=== PATIENT | male | born 1955 | race Caucasian/White ===

== ENCOUNTER 2016-09-15 07:09 | Inpatient (IN) ==
[2016-09-15] MEDS ORDERED: ZOFRAN ONE (07:24)
[2016-09-15] MEDS ORDERED: NS 1,000 ML IV ONE (07:24)
[2016-09-15] MEDS ORDERED: NS 1,000 ML ONE (07:24)
[2016-09-15] MEDS ORDERED: ZOFRAN IV ONE (07:24)
--- NOTE | 2016-09-15 07:33 | PROVIDER DOCUMENTATION ---
HPI-General Adult - General Stated Complaint: ALLERGIC REACTION Time Seen by Provider: 09/15/16 07:14 Source: patient, family Allergies/Adverse Reactions: Patient Allergies Allergy/AdvReac Type Severity Reaction Status Date / Time codeine Allergy Mild ITCHING Verified 09/15/16 07:27 Home Medications: Home Medication List Medication Instructions Recorded Confirmed Last Taken Type Lisinopril 20 mg PO DAILY 06/06/13 09/15/16 06/05/13 History Amoxicillin [Amoxicillin] 500 mg PO DAILY 09/15/16 09/15/16 09/14/16 23:00 History Hydrocodone/Acetaminophen [[place] 1 each PO Q4-6H PRN PRN 09/15/16 09/15/1609/15 01:00 History 10-325 Tablet] - History of Present Illness -Gen Adult Nature of Presenting Problems: Reports started [place]ox[place] and [place] for his dental procedure, which has no been done yet. Allergic reaction to [place] after taking 2 doses so far. Reports severe N/V and feeling sick in his stomach since 3AM last night. Pt feels sick/ weak and shaking when seen at ER. Denies CP/F/LOC. Reports h/o allergic to codeine. Saw PCP recently for yearly physical and was told that he is very healthy and prachi doing what he has been doing. Pt took Amoxil before and has no allergic reaction to it. Location of Pain/Injury: reports: abdomen Pain Radiation: reports: no radiation Quality of Pain: reports: other (Sick/nauseous feeling) Severity: reports: moderate, severe Onset/Duration: reports: last night Timing: reports: still present Context/Activities at Onset: reports: other (See HPI) Modifying Factors: improves with: nothing Associated Symptoms: reports: anxiety, fatigue, loss of appetite, malaise, nausea, vomiting. denies: cough, diaphoresis, diarrhea, genitourinary problems , shortness of breath, pain with inspiration, trouble walking Similar Symptoms Previously?: No Recently seen or treated by another doctor?: Yes Review of Systems - Adult - REVIEW OF SYSTEMS - ADULT Constitutional: reports: no symptoms reported Eyes: reports: no symptoms reported Ears, Nose, Mouth & Throat: reports: no symptoms reported Cardiovascular: reports: no symptoms reported Respiratory: reports: no symptoms reported Gastrointestinal: reports: see HPI, abdominal pain, nausea, vomiting Genitourinary: reports: no symptoms reported Musculoskeletal: reports: no symptoms reported Integumentary: reports: no symptoms reported Neurological: reports: no symptoms reported Psychiatric: reports: no symptoms reported Hematologic/Lymphatic: reports: no symptoms reported Allergic/Immunologic: reports: no symptoms reported All Other Systems: Reviewed and Negative Past History - Adult - PAST MEDICAL HISTORY-ADULT Review of Records: reports: Old Records Reviewed, Nursing Assessment Review, Medications Reviewed Physical Exam-General - CONSTITUTIONAL General Appearance: alert, mild distress. negative: lethargic, obtunded, combative - EYES Eyes: PERRL/EOMI, pink conjunctivae - HEAD, EARS, NOSE, MOUTH & THROAT HENMT: normocephalic/atraumatic, moist mucous membranes, normal ENT inspection, TMs normal, pharynx normal - NECK Neck: non-tender, full range of motion, supple - RESPIRATORY Respiratory: chest non-tender, lungs clear, normal breath sounds, no pleuratic chest pain, no respiratory distress, no accessory muscle use, other (But pt is anxious and tachypneic) - CARDIOVASCULAR Cardiovascular: normal peripheral pulses, regular rate, rhythm, no edema - GASTROINTESTINAL (ABDOMEN) Abdominal Exam: normal bowel sounds, non tender, soft, no organomegaly. negative: distended, guarding, rigid, rebound, tenderness, spleenomegaly, L[place]o 's sign - MUSCULOSKELETAL Back Exam: normal inspection, no CVA tenderness Extremity: normal range of motion, non-tender, normal gait, normal inspection - SKIN Integumentary: normal color, normal turgor, warm/dry - NEUROLOGIC Neurologic: no motor/sensory deficits, abnormal gait - PSYCHIATRIC Psych/Mental Status: normal mood/affect, normal thought content, normal thought process, oriented x 3 Progress - PLAN OF CARE/RESULTS Progress/Plan/Lab Results: Vital Signs - 8 hr 09/15/16 07:18 Pulse Rate 85 Respiratory Rate 27 H Orders Category Date Time Status Saline Loc DIRECTED Care 09/15/16 07:25 Active NPO Diet 09/15/16 07:25 Active AMYLASE [CHEM] Stat Lab 09/15/16 07:25 Ordered CBC WITH ELECTRONIC DIFF [HEME] Stat Lab 09/15/16 07:25 Ordered COMPREHENSIVE METABOLIC PANEL [CHEM] Stat Lab 09/15/16 07:25 Ordered LIPASE [CHEM] Stat Lab 09/15/16 07:25 Ordered MAGNESIUM [CHEM] Stat Lab 09/15/16 07:[address] W/POSS RFLX CULT [URINALYSIS] Stat Lab 09/15/16 07:25 Uncollected 0.9% Sodium Chloride Inj [Ns] 1,000 ml Med 09/15/16 07:24 Discontinued .ROUTE As Directed Ns 1000 ml IV Bolus X1 Med 09/15/16 07:24 Ordered 0.9% Sodium Chloride Inj [Ns] 1,000 ml IV 999 mls/hr Ondansetron [Zofran] Med 09/15/16 07:24 Discontinued 4 mg .ROUTE .STK-MED ONE Ondansetron [Zofran] Med 09/15/16 07:24 Once 8 mg IV NOW ONE Result Diagrams: 09/15/16 07:28 09/15/16 07:28 - REASSESSMENT Reassessment #1 Time Reassessed: 09:42 Status: improving - CONSULTS/PCP/HOSPITALIST Notification #1 *Consult/PCP/Hospitalist*: Dr. Tomlinson Time Discussed: 09:59 Consult Disposition: Will see in ED, Admit Departure - Departure Date of Disposition Decision: 09/15/16 Time of Disposition Decision: 09:59 DIAGNOSIS: Acute pancreatitis, Nausea & vomiting, Allergic reaction caused by a drug Disposition: ADMITTED INPATIENT 09 Certified Medical Emergency: Emergent Condition: Stable Referrals and Follow-Ups: Misael Gonsales MD [Primary Care Provider] - - Critical Care Note This patient required my direct & personal management of CC.: No
[2016-09-15 07:36] LABS: MANUAL DIFF NEEDED? NO
[2016-09-15] MEDS ORDERED: BENADRYL IV ONE (07:36)
[2016-09-15] MEDS ORDERED: SOLU-MEDROL IV ONE (07:36)
[2016-09-15 07:47] LABS: BASO% 0.2 % (0.0-0.8); EOS# 0.03 X1000 (0.0-0.7); EOS% 0.2 % (0.0-10.0); HEMATOCRIT 41.4 % (42.0-52.0); HEMOGLOBIN 14.7 g/dL (14.0-18.0); IMM GRAN# 0.06 X1000 (0.0-0.04); IMM GRAN% 0.3 % (0.0-0.5); LYMPH% 8.6 % (20.5-51.1); MCH 30.7 PG (27-31); MCHC 35.5 g/dL (33-37); MCV 86.4 FL (81-99); MONO# 1.19 X1000 (0.11-0.59); MONO% 6.4 % (1.7-9.3); MPV 11.4 FL (7.4-10.4); NEUT% 84.3 % (42.2-75.2); PLT 120 X1000 (130-400); RBC 4.79 XMIL (4.7-6.1)
[2016-09-15 08:08] LABS: AGAP 25; ALBUMIN 4.8 g/dL (3.5-5.0); ALKALINE PHOSPHATASE 56 U/L (32-122); AMYLASE 677 U/L (20-200); BUN 26 mg/dL (8-22); CALCIUM 9.9 mg/dL (8.8-10.2); CHLORIDE 95 mmol/L (98-107); COSMO 281; GOT 19 U/L (10-34); GPT 21 U/L (10-44); POTASSIUM 3.1 mmol/L (3.5-5.1); SODIUM 135 mmol/L (136-145); TCO2 15 mmol/L (25-35); TOTAL PROTEIN 7.9 g/dL (6.3-8.3)
[2016-09-15 08:12] LABS: URINE CULTURE PL NEEDED? NO
[2016-09-15 08:14] LABS: BILIRUBIN URINE NEGATIVE (NEGATIVE); BLOOD URINE NEGATIVE (NEGATIVE); CLARITY CLEAR (CLEAR); COLOR YELLOW; LEUKOCYTES URINE TRACE (NEGATIVE); NITRITE URINE NEGATIVE (NEGATIVE); PH URINE 6.5; PROTEIN URINE TRACE mg/dL (NEGATIVE); SP GRAVITY URINE 1.015; UROBILINOGEN URINE NORMAL
[2016-09-15 08:14] LABS: LIPASE 1308 U/L (13-60)
[2016-09-15 08:23] LABS: URINE EPITHELIAL CELLS <10 /HPF (<10); URINE SOURCE CLEAN CATCH; URINE WBC <10 /HPF (<10)
--- NOTE | 2016-09-15 08:33 | EKG Report ---
Test Performed on : 09/15/2016 08:23:16 AM Test Reason : CP Blood Pressure : / mmHG Vent. Rate : 074 BPM Atrial Rate : 074 BPM P-R Int : 146 ms QRS Dur : 096 ms QT Int : 402 ms P-R-T Axes : 022 077 067 degrees QTc Int : 446 ms Normal sinus rhythm. Normal ECG When compared with ECG of 30-OCT-2010 07:05, No significant change was found Unconfirmed Result
[2016-09-15] MEDS: NS + KCL 40 MEQ 1,000 ML IV SCH ×3 (09:38→21:58)
--- NOTE | 2016-09-15 09:58 | ED EKG INTERP ---
This chart was entered by Bina Combs Scribe, acting as scribe for Laura Reynoso MD. EKG Interpretation - EKG Time of EKG reading by physician:: 08:23 EKG Read and Signed by:: Laura Reynoso EKG Interpretation (*Must complete 3 of following elements*): Normal Rate: 74 Rhythm: normal sinus rhythm [place]: normal QRS: normal [place] Interval: normal ST Wave: normal This chart was documented by the indicated scribe, (Bina Combs Scribe) and accurately reflects the services I performed and decisions made by me, Laura Reynoso MD, as attested by the provider's signature.
--- NOTE | 2016-09-15 10:14 | Diag Imaging Result Doc PS360 ---
EXAM: CT ABD/PELVIS W/ IV CONT ONLY INDICATION: Abd pain TECHNIQUE: Dose reduction protocol was used. COMPARISON: None. FINDINGS: There is mild subsegmental atelectasis at the lung bases. There is a small right renal cyst, perhaps containing blood products or proteinaceous debris. The kidneys are grossly unremarkable, otherwise. The urinary bladder is unremarkable. The prostate is mildly prominent. The appendix is normal. There is increased stool in the colon, which may indicate mild to moderate constipation. There is no evidence of bowel obstruction. There is patchy aortoiliac atherosclerotic calcification. No focal inflammatory changes, free abdominal gas, or free fluid is appreciated. The remainder of the solid viscera of the abdomen and pelvis and the remainder of the GI tract are essentially unremarkable. There is incidental partial sacralization of the L5 vertebra. IMPRESSION: 1.Possible constipation. 2.Incidental/nonacute findings detailed above. No definite acute pathology, otherwise. Electronically signed by Damon Reyes 09/15/2016 10:12 AM
[2016-09-15] MEDS ORDERED: NS 1,000 ML IV SCH (15:57)
[2016-09-15] MEDS ORDERED: PHENERGAN IV PRN (15:57)
[2016-09-15] MEDS ORDERED: ZOFRAN IV PRN (15:57)
[2016-09-15] MEDS ORDERED: SODIUM CHLORIDE 0.9% INJ PRN (15:57)
[2016-09-15] MEDS ORDERED: SODIUM CHLORIDE 0.9% INJ SCH (16:00)
[2016-09-15] MEDS ORDERED: PROTONIX IV SCH (16:00)
[2016-09-15] MEDS: ZOSYN 3.375 GM/NS 3.375 GM/50 ML IVPB IV SCH (16:28)
[2016-09-15] MEDS ORDERED: MORPHINE IV PRN (16:49)
[2016-09-15] MEDS ORDERED: VALIUM PO PRN (17:31)
[2016-09-15] MEDS: DOXYCYCLINE 100 MG in NS 250 ML IV SCH (21:58)
[2016-09-16] MEDS: ZOSYN 3.375 GM/NS 3.375 GM/50 ML IVPB IV SCH ×2 (02:37→11:47)
[2016-09-16] MEDS ORDERED: NORCO-10 PO PRN (06:58)
[2016-09-16 07:23] LABS: AGAP 14; ALBUMIN 4.3 g/dL (3.5-5.0); ALKALINE PHOSPHATASE 47 U/L (32-122); BUN 22 mg/dL (8-22); CALCIUM 9.2 mg/dL (8.8-10.2); CHLORIDE 104 mmol/L (98-107); COSMO 281; GOT 14 U/L (10-34); GPT 16 U/L (10-44); POTASSIUM 4.7 mmol/L (3.5-5.1); SODIUM 139 mmol/L (136-145); TCO2 21 mmol/L (25-35); TOTAL PROTEIN 6.8 g/dL (6.3-8.3)
[2016-09-16 07:26] LABS: AMYLASE 74 U/L (20-200); HDL 48 mg/dL (35-55); LDL 129 mg/dL; LIPASE 25 U/L (13-60); TRIGLYCERIDES 79 mg/dL (39-160); VLDL 16 mg/dL
[2016-09-16] MEDS: NS + KCL 40 MEQ 1,000 ML IV SCH ×2 (08:02→15:17)
[2016-09-16 08:10] LABS: HEMOGLOBIN 12.8 g/dL (14.0-18.0); MCH 30.6 PG (27-31); MCHC 33.7 g/dL (33-37); MCV 90.9 FL (81-99); MPV 10.9 FL (7.4-10.4); RBC 4.18 XMIL (4.7-6.1)
[2016-09-16] MEDS ORDERED: PRINIVIL PO SCH (09:00)
[2016-09-16] MEDS ORDERED: FISH OIL CONCENTRATE PO SCH (09:00)
[2016-09-16] MEDS: DOXYCYCLINE 100 MG in NS 250 ML IV SCH (11:50)
[2016-09-16 14:04] VITALS: BP 115/78
--- NOTE | 2016-09-16 14:16 | Diag Imaging Result Doc PS360 ---
US GB < RUQ (LIMITED) - 09/16/2016 INDICATION: pancreatitis TECHNIQUE: COMPARISON: CT abdomen pelvis with contrast 09/15/2016 FINDINGS: The pancreas is largely obscured by bowel gas. No mass or fluid collections. There is a small stable right renal cyst measuring 1.2 cm. Common bile duct is top normal measuring 7 mm. The liver and gallbladder are normal. Aorta, IVC, and main portal vein are patent. IMPRESSION: No significant abnormality. Electronically signed by Jordan Melendez 09/16/2016 2:14 PM
--- NOTE | 2016-09-18 09:43 | HISTORY AND PHYSICAL ---
CHIEF COMPLAINT: Vomiting. HISTORY OF PRESENT ILLNESS: This is a 73-year-old gentleman who presented to the emergency room complaining of about 6 hours of vomiting. He states that he has an abscessed tooth, which he had seen the dentist for the day prior and was given amoxicillin and [place]. He started taking them that night. He woke up this morning complaining of nausea, vomiting and this did progress to diarrhea. He was found to have a white count of 18.69 with a lipase of 1308 and amylase of 677. He has no history of pancreatitis. He has no abdominal pain. He was given IV hydration, as well as nausea medication and admitted for further evaluation and treatment. PAST MEDICAL HISTORY: Hypertension. SURGICAL HISTORY: Cataract removal, bilateral. 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 He denies alcohol or illicit drug use. He is . ALLERGIES: Codeine, which causes itching. HOME MEDICATIONS: Lisinopril 20 mg daily, fish oil tablets 500 mg b.i.d. REVIEW OF SYSTEMS: A 14-point review of systems is discussed with the patient with pertinent positives stated in HPI. He denies chest pain, palpitations, syncope, dizziness, cough, chills, PND, orthopnea, black or bloody vomitus, black or bloody stools, hematuria, dysuria, frequency, or urgency. PHYSICAL EXAMINATION: VITAL SIGNS: Blood pressure is 111/43 with a heart rate of 84, respirations 18, temperature is 97.4 degrees with room air saturations of 99%. HEENT: Head is normocephalic, atraumatic. Pupils equal, round, react to light. EOMs are intact. Sclerae are anicteric. Mucous membranes are moist. NECK: Supple. Trachea midline. CARDIOVASCULAR: Regular rate and rhythm. S1 and S2 appreciated. PULMONARY: Breath sounds are clear with no increased work of breathing noted. GASTROINTESTINAL: Abdomen is soft, nontender, nondistended with bowel sounds in all 4 quadrants. BACK: No CVAT. No spine tenderness. EXTREMITIES: No clubbing, cyanosis, or edema. Calves are nontender. Pulses are palpable x4. MUSCULOSKELETAL: Good range of motion of joints. NEUROLOGIC: He is alert and oriented x3 with cranial nerves 2-12 grossly intact. DIAGNOSTICS: WBC is 18.69 with hemoglobin of 14.7, hematocrit 41.4, and platelets of 120,000. Sodium is 135, potassium 3.1, BUN 26, creatinine 1.1 with a glucose of 214. Amylase is 677. Lipase is 1308. CT of the abdomen and pelvis revealed possible constipation, a small right renal cyst of which he is aware. ASSESSMENT AND PLAN: This is a 60-year-old male, who presented to the emergency room having 6 hours of nausea and vomiting 1. Nausea and vomiting. We will continue with IV hydration, IV antiemetics. 2. Hypokalemia. We will replete potassium and trend electrolytes and replete as appropriate. 3. Leukocytosis. He has been diagnosed with an abscessed tooth by his dentist prior to admission. We will stop his home p.o. antibiotics start Zosyn 3.375. This will give coverage for his tooth as well as for his pancreatitis. We will follow. 4. Elevated amylase and lipase. He has no history of pancreatitis alcohol use. He has no right upper quadrant tenderness. He has a negative CT exam. This very well could be from is toothache, as amylase elevation very well could be from parotid stimulation, as he has massaged that area almost continuously over the last 2-3 days. Lipase could very well be elevated due to his vomiting. We will monitor labs in the morning. 5. Hypertension. We will continue his lisinopril. 6. We will obtain a right upper quadrant ultrasound. Further treatments pending hospital course. Dictated by GEOVANY Ravi for Warren Tomlinson MD cc: GEOVANY Ravi MD
--- NOTE | 2016-09-18 19:54 | DISCHARGE SUMMARY ---
ADMISSION DATE: 09/15/2016 DISCHARGE DATE: 09/16/2016 DISCHARGE DIAGNOSES: 1. Nausea and vomiting resolved. 2. Leukocytosis resolving. 3. Hypokalemia resolved. 4. Elevated amylase and lipase resolved. 5. Hypertension. DIAGNOSTICS: 1. 09/15/2016: CT of the abdomen and pelvis revealed possible constipation with a small right renal cyst, mildly prominent prostate, normal appendix. No evidence of bowel obstruction, patchy aortoiliac calcification. No inflammatory changes, free abdominal gas or free fluid is appreciated. Remainder of the solid viscera of the abdomen and pelvis, and the remainder of the GI tract are essentially unremarkable. 2. Abdominal ultrasound: No significant abnormality. No mass are fluid collections. There is a 1.2 cm stable right renal cyst. Common bile duct is normal measuring 7 mm. Liver and gallbladder are normal. Aorta, IVC and main portal vein are patent. HOSPITAL COURSE: Mr. Choudhary presented to the emergency room with nausea and vomiting after starting antibiotics and pain medication for an abscessed tooth. He was found to have a elevated white blood cell count as well as amylase and lipase. He was started on Zosyn, given IV hydration as well as IV nausea and pain control. Repeat labs the next morning revealed a normal amylase and lipase with labs on 09/15 having an amylase of 677 and lipase of 1308. On 09/16, amylase of 74 and lipase of 25. He had no abdominal signs and symptoms. It is felt that the elevated amylase was secondary to the stimulation of him rubbing and massaging this area due to his abscessed tooth and the lipase was from his vomiting. DISCHARGE MEDICATIONS: Lisinopril 20 mg p.o. daily. Clindamycin 300 mg p.o. b.i.d.. FOLLOWUP: 1. He is to follow up with his primary care physician in the next 2-3 weeks. 2. He is to call his dentist in the morning to notify him of these events of antibiotic change and further instructions. 3. He was encouraged to discuss his renal cyst with Dr. Gonsales, Urology. 4. He is being discharged home in stable condition with family members. TIME SPENT: This is a greater than 30 minute discharge. Dictated by GEOVANY Ravi for Warren Tomlinson MD cc: Kajal GEOVANY Perry MD David Francis, MD
== END 2016-09-16 16:00 | disposition home or self-care (01) ==
LOC: P.MEDSURG 07:09 → P.ED 07:09 → OBSVTOIN 07:10
PROVIDERS: ATTEND Family Medicine